=== PATIENT | female | born 1935 | race Caucasian/White ===

== ENCOUNTER 2020-02-09 05:10 | Emergency (ER) | payer OTHER, MEDICARE ==
[~2020-02-09] VITALS: Ht 165.1 cm; Wt 90.7 kg
[2020-02-09 05:10] VITALS: BP 155/72
--- NOTE | 2020-02-09 05:10 | NUR ---
84 Y/O FEMALE BIBA C/O SUDDEN/SEVERE CHEST PAIN TO LEFT BREAST X 1 HR. PT HAS HX OF CARDIAC STENTS PLACED IN 2004 SO IT MADE HER ANXIOUS. PT WAS ADMINISTERED NITRO & ASA ON SCENE AND STATES SHE HAS NO PAIN AT THIS TIME. PT A/OX 4 , S1S2 NOTED, CAP REFIL < 3 SEC , RR EVEN AND UNLABORED. PT DENIES SOB, N/V/D, CHILLS, BODY ACHES , FEVER AT THIS TIME. PMH: HTN, STENTS, CAD AX: CODEINE, STATIN MEDICATIONS
--- NOTE | 2020-02-09 05:10 | NUR ---
PT ESCORTED TO ED BED 11 BY EMS VIA [facility]
[2020-02-09] MEDS ORDERED: ONDANSETRON 4 MG/2 ML VIAL IVP ONE ×2 (05:45→08:25)
--- NOTE | 2020-02-09 06:00 | NUR ---
BLOOD CULTURES, LABS AND COVID BREE SWAB COLLECTED AND WALKED TO LAB.
--- NOTE | 2020-02-09 06:31 | NUR ---
XRAY AT BEDSIDE.
--- NOTE | 2020-02-09 06:32 | NUR ---
PER PT AUTHORIZATION - SPOKE W/ ANDREA BURDEN (SON) AND UPDATED ON PT STATUS. 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 ANDREA BURDEN [phone]
[2020-02-09 06:41] LABS: BASOPHILS % (AUTO) 0.3 % (0.0-2.0); EOSINOPHILS # (AUTO) 0.1 K/uL (0-0.4); EOSINOPHILS % (AUTO) 1.3 % (0.0-4.0); HEMATOCRIT 38.9 % (36-48); HEMOGLOBIN 13.1 g/dL (12.0-16.0); LYMPHOCYTES # (AUTO) 1.5 K/uL (2.5-16.5); LYMPHOCYTES % (AUTO) 25.7 % (20.5-51.1); MEAN CORPUSCULAR HEMOGLOBIN 33 pg (27-31); MEAN CORPUSCULAR HGB CONC 34 g/dL (33-37); MEAN CORPUSCULAR VOLUME 96.5 fL (80-94); MONOCYTES # (AUTO) 0.6 K/uL (0.8-1.0); MONOCYTES % (AUTO) 10.3 % (1.7-9.3); NEUTROPHILS # (AUTO) 3.7 K/uL (1.8-7.7); NEUTROPHILS % (AUTO) 62.4 % (42.2-75.2); PLATELET COUNT (AUTO) 175 K/uL (140-450); RED BLOOD CELL COUNT(AUTO) 4.03 MIL/uL (4.20-5.40); RED CELL DISTRIBUTION WIDTH 13.1 % (11.6-13.7)
[2020-02-09 06:47] LABS: CARBON DIOXIDE 27.2 mmol/L (21-32); CHLORIDE 107 mmol/L (98-107); CREATININE 1.4 mg/dL (0.6-1.3); GLUCOSE 143 mg/dL (74-106); POTASSIUM 4.2 mmol/L (3.5-5.1); SODIUM SERUM 139 mmol/L (136-145); UREA NITROGEN, BLOOD 38 mg/dL (7-18)
[2020-02-09 06:53] LABS: ALBUMIN 3.3 g/dL (3.4-5.0); ASPARTATE AMINOTRANSFERASE 21 U/L (15-37); TOTAL BILIRUBIN 0.5 mg/dL (0.0-1.0)
--- NOTE | 2020-02-09 07:07 | NUR ---
REPORT PROVIDED TO HEATHER ERVIN FOR CONTINUATION OF CARE.
--- NOTE | 2020-02-09 07:10 | NUR ---
REPORT RECEIVED FROM HEATHER MARLOW. TX OF [facility] AT THIS TIME.
[2020-02-09] MEDS ORDERED: KETOROLAC 30 MG/ML VIAL IVP ONE (08:25)
--- NOTE | 2020-02-09 08:47 | NUR ---
LAB AT BEDSIDE.
--- NOTE | 2020-02-09 10:32 | NUR ---
Dr. Soler is evaluating the patient at bedside.
[2020-02-09] MEDS ORDERED: MECLIZINE 25 MG TAB PO ONE (10:35)
--- NOTE | 2020-02-09 11:35 | NUR ---
IV d/c, 2x2 gauze placed to iv site. Bleeding controlled
--- NOTE | 2020-02-09 11:35 | NUR ---
Patient discharged with v/s stable. Written and verbal after care instructions given and explained. Patient alert, oriented and verbalized understanding of instructions. Ambulatory with steady gait. All questions addressed prior to discharge. ID band removed. Patient advised to follow up with PMD. Rx of Meclizine 25mg given. Patient educated on indication of medication including possible reaction and side effects. Opportunity to ask questions provided and answered.
[2020-02-09 11:36] VITALS: BP 118/62
== END 2020-02-09 11:35 | disposition home or self-care (01) ==
LOC: MED 05:10
DX: R07.89 Other chest pain (principal); R42 Dizziness and giddiness; R11.0 Nausea
CPT/HCPCS: 36415; 71045; 80053; 83880; 84484; 85025; 87426; 93005; 96374; 96375; 99285; J1885; J2405; J8597